=== PATIENT | male | born 1960 | race Caucasian/White ===

== ENCOUNTER → 2022-12-01 | Outpatient (CLI) | payer OTHER ==
--- NOTE | 2022-12-01 11:56 | Diagnostic Imaging Report ---
EXAMINATION: Right hip unilateral 2 or 3 views (w/pelvis when done) HISTORY: Hip pain COMPARISON: None available. FINDINGS: Alignment is normal. No fracture is seen. Joint spaces are normal. IMPRESSION: 1. No fracture. Dictated by: Dictated on workstation # [id number]
--- NOTE | 2022-12-01 11:56 | Diagnostic Imaging Report ---
EXAMINATION: Lumbosacral spine 2 or 3 views HISTORY: Back pain COMPARISON: None available. FINDINGS: Lumbar spine alignment is normal. There are bridging syndesmophytes anteriorly in the upper lumbar spine. No significant disc height loss. Vertebral body heights are normal. No fracture is seen. IMPRESSION: 1. No significant disc disease in the lumbar spine. Dictated by: Dictated on workstation # [id number]
== END ==
LOC: ORTHO 10:34
PROVIDERS: ATTEND Orthopaedic Surgery
DX: M25.551 Pain in right hip (principal); M54.50 Low back pain, unspecified
CPT/HCPCS: 20610; 72100; 73502; G0463; 99203